=== PATIENT | female | born 1995 | race Caucasian/White ===

== ENCOUNTER 2018-11-29 22:45 | Emergency (ER) | payer MEDICAID, OTHER ==
--- NOTE | 2018-11-30 02:08 | ER Document Report ---
ED Medical Screen (RME) - General Chief Complaint: Abdominal Pain Stated Complaint: ABDOMINAL PAIN Time Seen by Provider: 11/30/18 01:59 Primary Care Provider: DELFINO MERCEDES NP [Primary Care Provider] - Follow up as needed Notes: Patient is a 23-year-old female who presents emergency department with a chief complaint of period cramps. She states that she took some Pamprin and Tylenol, but had little relief. She states that her symptoms started yesterday. She also vomited twice on the way here to the emergency department. She has history of ovarian cysts. Exam: Abdomen-soft, normoactive bowel sounds I have greeted and performed a rapid initial assessment of this patient. A comprehensive ED assessment and evaluation of the patient, analysis of test results and completion of medical decision making process will be conducted by an additional ED providers. TRAVEL OUTSIDE OF THE [place] IN LAST 30 DAYS: No - Related Data Allergies/Adverse Reactions: No Known Allergies Allergy (Verified 10/06/13 16:07) Physical Exam - Vital signs Vitals: Temp Pulse Resp BP Pulse Ox 98.6 F 81 18 116/64 98 11/29/18 22:58 11/29/18 22:58 11/29/18 22:58 11/29/18 22:58 11/29/18 22:58 Course - Vital Signs Vital signs: Temp Pulse Resp BP Pulse Ox 98.6 F 81 18 116/64 98 11/29/18 22:58 11/29/18 22:58 11/29/18 22:58 11/29/18 22:58 11/29/18 22:58 Doctor's Discharge - Discharge Referrals: DELFINO MERCEDES NP [Primary Care Provider] - Follow up as needed
[2018-11-30] MEDS ORDERED: ONDANSETRON 4 MG TAB.RAPDIS PO ONE (02:09)
[2018-11-30 03:44] LABS: APPEARANCE,URINE CLEAR; BILIRUBIN,URINE NEGATIVE (NEGATIVE); COLOR,URINE YELLOW; GLUCOSE, URINE NEGATIVE (NEGATIVE); KETONES,URINE NEGATIVE (NEGATIVE); LEUKOCYTE ESTERASE,URINE NEGATIVE (NEGATIVE); NITRITE,URINE NEGATIVE (NEGATIVE); PROTEIN,URINE NEGATIVE (NEGATIVE); URINE SPECIFIC GRAVITY 1.028
[2018-11-30 03:48] LABS: ABSOLUTE BASOPHILS # (AUTO) 0.1 10^3/uL (0.0-0.2); ABSOLUTE EOSINOPHILS # (AUTO) 0.2 10^3/uL (0.0-0.6); ABSOLUTE LYMPHOCYTES (AUTO) 2.2 10^3/uL (0.5-4.7); ABSOLUTE MONOCYTES (AUTO) 0.7 10^3/uL (0.1-1.4); ABSOLUTE NEUT (AUTO) 6.8 10^3/uL (1.7-8.2); BASOPHILS % (AUTO) 0.6 % (0-2); EOSINOPHILS % (AUTO) 2.1 % (0-6); HEMATOCRIT 39.2 % (36.0-47.0); HEMOGLOBIN 13.3 g/dL (12.0-15.5); LYMPHOCYTES % (AUTO) 21.8 % (13-45); MEAN CORPUSCULAR HEMOGLOBIN 33.2 pg (27.0-33.4); MEAN CORPUSCULAR HGB CONC 34.1 g/dL (32.0-36.0); MEAN CORPUSCULAR VOLUME 97 fl (80-97); MONOCYTES % (AUTO) 7.4 % (3-13); PLATELET COUNT 247 10^3/uL (150-450); RED BLOOD COUNT 4.02 10^6/uL (3.72-5.28); SEGMENTED NEUTROPHILS % (AUTO) 68.1 % (42-78); TOTAL CELLS COUNTED % (AUTO) 100 %
--- NOTE | 2018-11-30 05:39 | RADIOLOGY REPORT (SQ) ---
EXAM: Ultrasound transvaginal CLINICAL DATA: 23-year-old female with abdominal cramping and history of ovarian cysts. LMP is 11/29/2018. TECHNICAL DATA: Ultrasound imaging of the pelvis was performed endovaginally on 11/30/2018 at 3:35 AM. COMPARISONS: None FINDINGS: The uterus is normal in size, shape and echogenicity and measures 7.5 x 4.5 x 4.3 cm. The endometrial complex measures 0.4 cm in thickness. There is no endometrial fluid. The cervix measures 2.8 cm in length. The right ovary measures 2.8 x 2.1 x 1.5 cm. There are normal follicular changes of the right ovary. Doppler imaging demonstrates normal pulsed and color Doppler flow. The left ovary measures 3.4 x 1.6 x 1.6 cm. There are normal follicular changes of the left ovary. Doppler imaging demonstrates normal pulsed and color Doppler flow. There is a small amount of free fluid in the adnexal regions bilaterally. IMPRESSION: 1. Small amount of free fluid in the adnexal regions bilaterally. 2. Grossly normal follicular changes of both ovaries. 3. Grossly normal sonographic appearance of the uterus.
--- NOTE | 2018-11-30 06:28 | ER Document Report ---
ED General - General Chief Complaint: Abdominal Pain Stated Complaint: ABDOMINAL PAIN Time Seen by Provider: 11/30/18 01:59 Primary Care Provider: DELFINO MERCEDES NP [NURSE PRACTITIONER] - Follow up as needed MYRON SINGH MD [ACTIVE STAFF] - Follow up in 1 week Notes: Patient is a 23-year-old female who presents emergency department with a chief complaint of period cramps. She states that she took some Pamprin and Tylenol, but had little relief. She states that her symptoms started yesterday. She also vomited twice on the way here to the emergency department. She has history of ovarian cysts. She states that she used to be on control, but since her insurance does not cover her control, she stopped using her control. When she was on her control patch, she had normal regular period s. She also did not have any cramping with and she was on her control. TRAVEL OUTSIDE OF THE [place] IN LAST 30 DAYS: No - Related Data Allergies/Adverse Reactions: No Known Allergies Allergy (Verified 10/06/13 16:07) Past Medical History - Social History Smoking Status: Current Every Day Smoker Family History: Reviewed & Not Pertinent Patient has suicidal ideation: No Patient has homicidal ideation: No Renal/ Medical History: Denies: Hx Peritoneal Dialysis Review of Systems - Review of Systems Notes: REVIEW OF SYSTEMS: CONSTITUTIONAL : Denies recent illness. Denies recent unintentional weight loss. Denies fever, chills, or sweats. EENT: Denies eye, ear, throat, or mouth pain, discharge, or symptoms. Denies nasal or sinus congestion. CARDIOVASCULAR: Denies chest pain. RESPIRATORY: Denies shortness of breath, cough, congestion, difficulty breathing, or wheezing. GASTROINTESTINAL: Denies nausea, vomiting, and diarrhea. Denies constipation. Last BM: Yesterday GENITOURINARY: Denies difficulty urinating, burning, blood in urine, urgency or frequency. FEMALE GENITOURINARY: See HPI MUSCULOSKELETAL: Denies neck and back pain. Denies joint pain or swelling. SKIN: Denies rash, itchiness, or lesions HEMATOLOGIC : Denies easy bruising or bleeding. LYMPHATIC: Denies swollen, painful, enlarged glands. NEUROLOGICAL: Denies no numbness or tingling denies weakness. Denies headache. Denies altered mental status. Denies alteration in speech. PSYCHIATRIC: Denies stress, anxiety, alteration in sleep patterns, or depression. All other systems reviewed and negative. Physical Exam - Vital signs Vitals: Temp Pulse Resp BP Pulse Ox 98.6 F 81 18 116/64 98 11/29/18 22:58 11/29/18 22:58 11/29/18 22:58 11/29/18 22:58 11/29/18 22:58 - Notes Notes: PHYSICAL EXAMINATION: GENERAL: Appears well, healthy, well-nourished, no acute distress. HEAD: Normocephalic, atraumatic. EYES: PERRL, conjunctiva normal, all extraocular movements intact, sclera nonicteric ENT: Moist mucous membranes. NECK: Supple, no noticeable swelling, redness, rash. Normal range of motion. LUNGS: Equal breath sounds bilaterally and clear to auscultation. No wheezes rales or rhonchi. CARDIOVASCULAR: S1-S2, regular rate, regular rhythm. Radial pulses 2+, normal. ABDOMEN: Normoactive bowel sounds. Soft, mildly tender pelvic region, no g uarding, no rebound tenderness, and no masses palpated. EXTREMITIES: Normal strength and range of motion, no pitting or edema. No cyanosis. NEUROLOGICAL: Moves all extremities upon command. Strength 5/5 in all extremities. PSYCH: Normal mood, normal affect. SKIN: Warm, dry. No rash, lesions, ulcerations noted. Normal skin turgor. Course - Re-evaluation Re-evalutation: 11/30/18 The patient has a small bladder free fluid in her adnexal areas, most likely consistent with her being on her menstrual cycle. There is no ovarian torsion noted. Good blood flow to ovaries. Her uterus is normal. The patient is not anemic. She will be started on back on her control. I have also given her a good Rx coupon to help pay for her control patches. She will follow-up with [facility]. She will also follow-up with her primary care provider regards to this visit. I strongly advised her to stop smoking, as being on control and smoking puts her at an increased risk of blood clots. She is in agreement to stop smoking. Verbal discharge instructions were given to the patient. They verbalized understanding. They are stable for discharge. - Vital Signs Vital signs: Temp Pulse Resp BP Pulse Ox 98.6 F 87 18 112/62 98 11/30/18 06:50 11/30/18 06:50 11/30/18 06:50 11/30/18 06:50 11/30/18 06:50 - Laboratory Result Diagrams: 11/30/18 03:20 Laboratory results interpreted by me: 11/30/18 03:20 Urine Blood MODERATE H Urine Urobilinogen 2.0 H Discharge - Discharge Clinical Impression: Severe menstrual cramps Abdominal pain Qualifiers: Abdominal location: lower abdomen, unspecified Qualified Code(s): R10.30 - Lower abdominal pain, unspecified Condition: Stable Disposition: HOME, SELF-CARE Additional Instructions: You were seen today in the emergency department for menstrual cramps. Please restart your control. Please follow-up with the [facility] if needed. Please follow-up with your primary care provider in regards to this visit. If you have worsening symptoms, develop fever greater than 100.4 F, or have any symptoms that are worrisome to you, please return to the emergency department. Prescriptions: Norelgestromin/Ethin.estradiol [Xulane Patch] 1 each TD ASDIR #6 patch.tdwk Referrals: DELFINO MERCEDES NP [NURSE PRACTITIONER] - Follow up as needed MYRON SINGH MD [ACTIVE STAFF] - Follow up in 1 week
[2018-11-30 06:54] VITALS: BP 112/62
== END 2018-11-30 06:54 | disposition home or self-care (01) ==
LOC: ER 22:45
DX: N94.6 Dysmenorrhea, unspecified (principal); R10.30 Lower abdominal pain, unspecified; R11.10 Vomiting, unspecified; F17.200 Nicotine dependence, unspecified, uncomplicated
CPT/HCPCS: 99284; 36415; 85025; 81001; 76830; 93976; S0119